=== PATIENT | male | born 1980 | race Caucasian/White ===

== ENCOUNTER 2018-01-03 11:29 | Outpatient (CLI) | END 2018-01-03 11:30 | disposition home or self-care (01) | LOC: RHC-LAB 11:29 | PROVIDERS: ATTEND Emergency Medicine | DX: R10.30 Lower abdominal pain, unspecified (principal); R35.0 Frequency of micturition; R68.89 Other general symptoms and signs; M25.50 Pain in unspecified joint; W57.XXXA Bitten or stung by nonvenomous insect and other nonvenomous arthropods, initial encounter | CPT/HCPCS: 36415; 80053; 82550; 85025; 85651; 86617; 87651; 87804 ==